=== PATIENT | female | born 1995 | race African-American/Black ===

== ENCOUNTER 2017-03-15 09:49 | Emergency (ER) | payer SELFPAY ==
[~2017-03-15] VITALS: Ht 157.5 cm; Wt 55.0 kg
[2017-03-15 11:13] VITALS: BP 118/74
[2017-03-15] MEDS ORDERED: IBUPROFEN 600 MG TABLET PO ONE ×2 (11:30→12:00)
== END 2017-03-15 12:05 | disposition home or self-care (01) ==
LOC: EMS 09:53
DX: M54.5 Low back pain (principal); S09.90XA Unspecified injury of head, initial encounter; V49.40XA Driver injured in collision with unspecified motor vehicles in traffic accident, initial encounter; Y93.89 Activity, other specified; Y92.89 Other specified places as the place of occurrence of the external cause; Y99.8 Other external cause status
CPT/HCPCS: 99283